=== PATIENT | male | born 2000 | race African-American/Black ===

== ENCOUNTER 2024-12-05 11:12 | Emergency (ER) | payer OTHER ==
--- NOTE | 2024-12-05 12:17 | ED ---
Male Urogenital HPI - General Chief complaint: Urogenital Stated complaint: Groin Pain Time Seen by Provider: 12/05/24 12:14 Source: patient, RN notes reviewed Mode of arrival: ambulatory Limitations: no limitations - History of Present Illness Initial comments: 23-year-old male sent from [facility] urgent care for right sided testicular pain x 5 days. Reports a dull pain that is intermittent and worse with movement. Reports pain is a about a 1 out of 10 right now. Denies left-sided pain. Denies swelling or redness. Denies nausea, vomiting, fevers. Denies urinary symptoms or penile discharge. - Related Data Allergies Allergy/AdvReac Type Severity Reaction Status Date / Time No Known Allergies Allergy Verified 12/05/24 11:35 Review of Systems ROS Statement: Those systems with pertinent positive or pertinent negative responses have been documented in the HPI. ROS Other: All systems not noted in ROS Statement are negative. Past Medical History Past Medical History: No Reported History Past Surgical History: No Surgical Hx Reported Smoking Status: Never smoker General Exam Limitations: no limitations General appearance: alert, in no apparent distress Head exam: Present: atraumatic, normocephalic, normal inspection GI/Abdominal exam: Present: soft, normal bowel sounds. Absent: distended, tenderness, guarding, rebound, rigid exam: Present: normal inspection, other (LIFE SCIENCES INSTRUCTOR Pedro chaperoned examination). Absent: testicular tenderness, urethral discharge, scrotal swelling Neurological exam: Present: alert, oriented X3 Psychiatric exam: Present: normal affect, normal mood Skin exam: Present: warm, dry, intact, normal color. Absent: rash Course Vital Signs 12/05/24 11:33 Temperature 97.8 F Pulse Rate 69 Respiratory 16 Rate Blood Pressure 119/68 O2 Sat by Pulse 99 Oximetry Medical Decision Making - Medical Decision Making Was pt. sent in by a medical professional or institution (, PA, DUMP GROUNDS CHECKER, urgent care, hospital, or long term...) When possible be specific @ -Sent by [facility] urgent care for scrotal ultrasound to rule out testicular torsion Did you speak to anyone other than the patient for history (EMS, parent, family, police, friend...)? What history was obtained from this source @ -No Did you review nursing and triage notes (agree or disagree)? Why? @ -I reviewed and agree with nursing and triage notes Were old charts reviewed (outside hosp., previous admission, EMS record, old EKG, old radiological studies, urgent care reports/EKG's, long term records)? Report findings @ -No old charts were reviewed Differential Diagnosis (chest pain, altered mental status, abdominal pain women, abdominal pain men, vaginal bleeding, weakness, fever, dyspnea, syncope, headache, dizziness, GI bleed, back pain, seizure, CVA, palpatations, mental health, musculoskeletal)? @ -Testicular torsion, epididymitis, balanitis, hydrocele, urinary tract infection, STI EKG interpreted by me (3pts min.). @ -None X-rays interpreted by me (1pt min.). @ -None done CT interpreted by me (1pt min.). @ -None done U/S interpreted by me (1pt. min.). @ -Scrotal ultrasound reveals no acute process What testing was considered but not performed or refused? (CT, X-rays, U/S, labs)? Why? @ -None What meds were considered but not given or refused? Why? @ -None Did you discuss the management of the patient with other professionals (professionals i.e. , PA, DUMP GROUNDS CHECKER, lab, RT, psych nurse, perinatal social worker, residential leasing manager, teacher, correction officer supervisor, case therapist)? Give summary @ -No Was smoking cessation discussed for >3mins.? @ -No Was critical care preformed (if so, how long)? @ -No Were there social determinants of health that impacted care today? How? (Homelessness, low income, unemployed, alcoholism, drug addiction, transportation, low edu. Level, literacy, decrease access to med. care, retirement, rehab)? @ -No Was there de-escalation of care discussed even if they declined (Discuss DNR or withdrawal of care, Hospice)? DNR status @ -No What co-morbidities impacted this encounter? (DM, HTN, Smoking, COPD, CAD, Cancer, CVA, ARF, Chemo, Hep., AIDS, mental health diagnosis, sleep apnea, morbid obesity)? @ -None Was patient admitted / discharged? Hospital course, mention meds given and route, prescriptions, significant lab abnormalities, going to OR and other pertinent info. @ -Discharge. 23-year-old male presenting for right sided testicular pain x 5 days. Denies redness, swelling. Scrotal ultrasound reveals no acute process. Discussed negative results with patient. I do not identify an emergent etiology causing testicular pain at this time. Patient can be safely discharged home with close outpatient follow-up and strict return precautions. Case was discussed with my ED attending Dr. Mejia. Undiagnosed new problem with uncertain prognosis? @ -No Drug Therapy requiring intensive monitoring for toxicity (Heparin, Nitro, Insulin, Cardizem)? @ -No Were any procedures done? @ -No Diagnosis/symptom? @ -Right sided testicular pain Acute, or Chronic, or Acute on Chronic? @ -Acute Uncomplicated (without systemic symptoms) or Complicated (systemic symptoms)? @ -Uncomplicated Side effects of treatment? @ -No Exacerbation, Progression, or Severe Exacerbation? @ -No Poses a threat to life or bodily function? How? (Chest pain, [place], [place], pneumonia, PE, COPD, DKA, ARF, appy, cholecystitis, CVA, Diverticulitis, Homicidal, Suicidal, threat to staff... and all critical care pts) @ -Not at this time - Lab Data Lab Results 12/05/24 Range/Units 12:17 Urine Color Colorless Urine Appearance Turbid (Clear) Urine pH 8.0 (5.0-8.0) Ur Specific [place] 1.022 (1.001-1.035) Urine Protein Negative (Negative) Urine Glucose (UA) Negative (Negative) Urine Ketones Negative (Negative) Urine Blood Negative (Negative) Urine Nitrite Negative (Negative) Urine Bilirubin Negative (Negative) Urine Urobilinogen <2.0 (<2.0) mg/dL Ur Leukocyte Esterase Negative (Negative) Amorphous Sediment Occasional H (None) /hpf Disposition Clinical Impression: Right testicular pain Disposition: HOME SELF-CARE Condition: Stable Instructions (If sedation given, give patient instructions): Testicle Pain (ED) Additional Instructions: Please return to the Emergency Department if symptoms worsen or any other concerns. Is patient prescribed a controlled substance at d/c from ED?: No Referrals: None,Stated [Primary Care Provider] - 1-2 days Time of Disposition: 14:02
[2024-12-05 12:59] LABS: Amorphous Sediment,Urine Occasional /hpf; Bilirubin,Urine Negative (Negative); Blood,Urine Negative (Negative); Color,Urine Colorless; Glucose,Urine (UA) Negative (Negative); Ketones,Urine Negative (Negative); Leukocyte Esterase,Urine Negative (Negative); Nitrite,Urine Negative (Negative); PH, Urine 8.0 (5.0-8.0); Protein,Urine Negative (Negative); Specific Gravity,Urine 1.022 (1.001-1.035); Urobilinogen,Urine <2.0 mg/dL (<2.0)
--- NOTE | 2024-12-05 13:23 | US ---
EXAMINATION TYPE: US scrotum with doppler. DATE OF EXAM: 12/05/2024 COMPARISON: NONE CLINICAL INDICATION: Male, 23 years old with history of right testicle pain x 5 days; Pain right side x 5 days. TECHNIQUE: Grayscale, color Doppler and spectral Doppler imaging of the scrotum. FINDINGS: EXAM MEASUREMENTS: TESTICLES: Right Testicle: 5.0 x 2.6 x 3.9 cm Left Testicle: 4.7 x 2.4 x 3.6 cm EPIDIDYMIS HEAD: Right Epididymis: .8 x .9 x .6 cm Left Epididymis: .8 x 1.1 x .7 cm Doppler performed to assess for testicular vascularity; good bilateral color flow and spectral wavefo giuseppe are seen. There is no evidence of testicular torsion. Presence of hydroceles: no Presence of varicoceles: no IMPRESSION: No evidence for acute process. No evidence for intratesticular mass. Appropriate arterial and venous spectral waveforms to the testes. No evidence for testicular torsion. [facility], , 12/05/2024 1:21 PM
[2024-12-05 14:07] VITALS: BP 118/76; PULSE 76; RESP 18; TEMP 98
[2024-12-06 12:57] LABS: C. trachomatis,PCR Negative (Negative)
[2024-12-06 12:58] LABS: N. gonorrhoeae,PCR Negative (Negative)
== END 2024-12-05 14:07 | disposition home or self-care (01) ==
LOC: EC 11:12
DX: N50.811 Right testicular pain (principal)
CPT/HCPCS: 76870; 81001; 87491; 87591; 93975; 99284